=== PATIENT | female | born 1975 | race Caucasian/White ===

== ENCOUNTER 2021-10-19 09:30 | Outpatient (CLI) | payer OTHER, SELFPAY ==
[2021-10-19 10:06] LABS: Anion Gap 9 mmol/L (8-16); Blood Urea Nitrogen 10 mg/dL (7-17); Calcium 9.2 mg/dL (8.4-10.2); Carbon Dioxide 28 mmol/L (22-30); Chloride 100 mmol/L (98-107); Estimated Glomerular Filt Rate > 60; Glucose 139 mg/dL (65-110); Potassium 4.3 mmol/L (3.4-5.0); Sodium 137 mmol/L (137-145)
== END 2021-10-19 09:31 | disposition home or self-care (01) ==
LOC: ANHSURGERY 09:42
PROVIDERS: Anesthesiology; PCP Family Medicine; Visit Provider Obstetrics & Gynecology Gynecology
DX: Z01.812 Encounter for preprocedural laboratory examination (principal); Z51.81 Encounter for therapeutic drug level monitoring; Z79.899 Other long term (current) drug therapy
CPT/HCPCS: 36415; 80048

== ENCOUNTER 2021-10-23 00:02 | Day surgery (SDC) | payer OTHER, SELFPAY ==
[2021-10-18 15:07] VITALS: BMI 31.1
--- NOTE | 2021-10-18 15:08 | PC.NURSE ---
Addendum entered by Sujata Phan RN 10/19/21 07:47: MAY TAKE PRISTIQ MORNING OF SURGERY WITH SMALL SIP OF WATER Original Note: Report to the Outpatient Waiting Room, entrance under the green pavilion located off [facility], at time ____629___ on date __10/23/21 . OR Time: . - You and your visitor will be asked a series of questions to screen for COVID 19 for your protection. - A mask is required within the hospital. Preoperative COVID Testing Requirements: No COVID Test needed if: (proof is required; if not received patient will have Rapid Test prior to entry) - Patient has received COVID Vaccine at least 14 days prior to procedure date or - Patient has positive COVID test result within last 90 days of surgery date. COVID Test needed if above criteria is not met If not COVID vaccinated a COVID test must be conducted within 72 hours of surgery and patient is asked to isolate self from time of testing until procedure. You will go to the [facility] for your COVID testing. The [facility] site is located at the corner of [address] [facility]. You will only be called if COVID results are positive and your surgeon may reschedule your elective surgery date. Patients may have clear liquids (water, carbonated beverages, clear teas, apple juice) until 3 hours prior to surgery with a maximum of 20 ounces. - No food from midnight until time of surgery - Infants may have breast milk until 4 hours before surgery, infant formula 6 hours prior to surgery. - Children will be allowed to drink immediately following surgery. If applicable, please bring a bottle or sippy cup to assist with drinking. Juice, water, soda, and popsicles are readily available. For infants on formula, please bring formula the day of surgery. Pacifiers are allowed. Take the following medications with a SIP of water the morning of surgery: METOPROLOL, PANTOPRAZOLE Medications to discontinue per physician NONE Date to take last dose Please no make-up, nail argentine, hairspray, perfume, deodorant, or body powder the day of surgery. No jewelry (including any body piercings) or valuables the day of surgery, leave them at home. Please take a shower or bath the night before, or the morning of, surgery with an antibacterial soap. Wear comfortable, loose fitting clothing. Children are encouraged to wear pajamas. - Jewelry must be removed prior to entering the operating room. Rings and piercings that are not removed may be cut off. - The hospital will not accept responsibility for valuables. - Please leave all valuables, including medications, at home the day of surgery. If you are going home after surgery, a licensed cement mixer driver must drive you home. - NO public transportation without another adult. - We recommend that an adult stay with you for 24 hours following discharge. - We also recommend that you do not drive, make important decision, drink alcoholic beverages, or take any drugs that were not prescribed by your health care provider for at least 24 hours after your discharge time. For Pediatric surgeries, we recommend two adults accompany the child home (only one inside the building at this time). One visitor will be allowed to accompany the patient into the hospital. Patients visitor will be instructed to remain with patient at all times or leave the building. We will allow the visitor to come back to the postoperative area when patient is ready. Follow any additional instructions given to you from your surgeon. Telephone instructions given to PATIENT____and asked if any additional questions and then verbalized understanding. Patient advised to call surgeon office or pre surgery nurse liaison [phone] if any additional questions.
--- NOTE | 2021-10-22 16:41 | WPDANESEPP ---
Anes - Eval Pre Procedure Procedure: Operation Date: 10/23/21 08:30 Proposed Procedures p Hysteroscopy Dilation and Curettage - Mary Banks MD Date/Time: 10/22/21 16:41 Pre Op Diagnosis: pelvic pain, left ovarian mass Patient Data Age: 46 Gender: F Height: 1.65 m Weight: 85 kg Allergies Allergy/AdvReac Type Severity Reaction Status Date / Time No Known Allergies Allergy Verified 10/18/21 14:54 Home Medications Medication Instructions Recorded Confirmed Type desvenlafaxine succinate [Pristiq] 100 mg PO DAILY 10/18/21 10/18/21 History hydrochlorothiazide 12.5 mg PO DAILY 10/18/21 10/18/21 History levocetirizine [Xyzal] 5 mg PO DAILY 10/18/21 10/18/21 History metformin 1,000 mg PO DAILY 10/18/21 10/18/21 History metoprolol succinate 50 mg PO DAILY 10/18/21 10/18/21 History pantoprazole 40 mg PO QAM 10/18/21 10/18/21 History spironolactone 100 mg PO DAILY 10/18/21 10/18/21 History Patient hx anesthesia problems: post op nausea/vomiting Family hx anesthesia problems: none Results Review: All pre-operative results and documents have been reviewed as part of the pre-operative evaluation. [facility] Past Medical History Medical History (Updated 10/22/21 @ 16:41 by Calli Raymond CRNA) Anxiety GERD (gastroesophageal reflux disease) Hypertension PONV (postoperative nausea and vomiting) Surgical History Surgical History (Updated 10/20/21 @ 13:51 by Tim Sanchez DO) History of History of spinal fusion Social History Social History Smoking status: Never smoker Alcohol use details: VERY RARELY Exam Day of Procedure 10/22/21 16:41
--- NOTE | 2021-10-23 07:15 | WPDHPUPDATE1 ---
History and Physical Update Update Date/Time: 10/23/21 07:15 History and Physical has been reviewed, including an updated exam of the patient. There are NO changes in the patient's condition. Risks, benefits, and alternatives have been discussed and questions answered. Patient agrees to proceed with procedure.
--- NOTE | 2021-10-23 07:15 | PM.HPGS ---
History of Present Illness History of Present Illness Consent: Risks, benefits, and alternatives have been discussed and questions answered. Patient agrees to proceed with procedure. Chief complaint: pelvic pain, left ovarian mass Narrative: Hafsa Gu is a 46 year old female with onset of heavy and irregular cycles in June of 2022. Patient reports prior to that point cycles have been every month. Currently she is having cycles approximately every 2 weeks each lasting for 7 days. It was recommended to proceed with workup for abnormal bleeding with hysteroscopy D& C. Risks of infection, bleeding, perforation, and possible pathology were reviewed. Patient voices understanding and agrees to proceed. Review of Systems Review of Systems: not repeated day of surgery; patient states no changes in status Genitourinary: Genitourinary: Reports dysmenorrhea PMFSH Past Medical History Medical History (Updated 10/23/21 @ 07:19 by Mary Banks MD) Anxiety Asthma GERD (gastroesophageal reflux disease) Hypertension PCOS (polycystic ovarian syndrome) PONV (postoperative nausea and vomiting) Surgical History Surgical History (Updated 10/23/21 @ 07:18 by Mary Banks MD) H/O sinus surgery History of bilateral tubal ligation History of X2 History of spinal fusion Status post right breast lumpectomy 2018 Social History Social History Smoking status: Never smoker Alcohol use details: VERY RARELY Living arrangements: with family Meds Home Medications and Allergies Home Medications Medication Instructions Recorded Confirmed Type desvenlafaxine succinate [Pristiq] 100 mg PO DAILY 10/18/21 10/23/21 History hydrochlorothiazide 12.5 mg PO DAILY 10/18/21 10/23/21 History levocetirizine [Xyzal] 5 mg PO DAILY 10/18/21 10/23/21 History metformin 1,000 mg PO DAILY 10/18/21 10/23/21 History metoprolol succinate 50 mg PO DAILY 10/18/21 10/23/21 History pantoprazole 40 mg PO QAM 10/18/21 10/23/21 History spironolactone 100 mg PO DAILY 10/18/21 10/23/21 History meloxicam [Mobic] 7.5 mg PO DAILY 10/23/21 10/23/21 History Allergies Allergy/AdvReac Type Severity Reaction Status Date / Time No Known Allergies Allergy Verified 03/07/22 07:09 Exam Const: General: healthy appearing and alert Orientation/consciousness: patient oriented x3 GI: GI Palp: Yes Soft to palpation, No Tenderness to palpation present (GI) and No Palpable mass present : External Female Exam: normal external appearance Speculum Exam - Vagina: normal appearance of the vagina and normal vaginal discharge Speculum Exam - Cervix: normal appearance of the cervix Bimanual exam- vagina & uterus: uterine size normal and consistency normal Bimanual Exam- Adnexa, other: normal adnexae and No adnexal tenderness Neuro: General: patient oriented x3 Assessment and Plan Assessment and plan (1) Menorrhagia: Code(s): N92.0 - Excessive and frequent menstruation with regular cycle Status: Acute Assessment and Plan: Plan is to proceed with D&C hysteroscopy
[2021-10-23] MEDS: LACTATED RINGERS 1,000 ML 30 ML IV CONT (07:39)
--- NOTE | 2021-10-23 07:39 | WPDANESEFPP ---
Anes - Eval Final PreProcedure Day of Procedure 10/23/21 07:39 Patient weight: obese Heart: regular rate and rhythm Lungs: clear to auscultation and normal air movement Airway: Mallampati scale class II Neurological: alert and oriented Last oral intake: >/= 8 hours ASA classification: III Emergent: no Anesthetic plan: proceed Anesthesia type and monitoring: general GIVS and standard monitoring Results Review: All pre-operative results and documents have been reviewed as part of the pre-operative evaluation. Informed Consent: The patient's anesthetic plan and its attendant risks and benefits were discussed with the patient/family/POA. Questions were solicited and answers provided to the satisfaction of the patient/family/POA.
[2021-10-23 07:48] VITALS: BP 135/71; PULSE 75; RESP 20; TEMP 36.2; O2SAT 98
[2021-10-23] MEDS: ACETAMINOPHEN 500 MG TABLET 1000 MG PO (07:50)
--- NOTE | 2021-10-23 08:22 | P.OP_ITS ---
Procedure Note - Detailed Date of Procedure 10/23/21 Pre-op Diagnosis Menorrhagia Post-op Diagnosis Same Procedure Performed D&C hysteroscopy Surgeon Mary Banks MD Anesthesia MAC and Local Findings Cervix is stenotic. Uterus sounds to 7cm and appears grossly normal. Description of Procedure The patient was taken to the operating room and placed under anesthesia in the dorsal lithotomy position. She was prepped and draped in the usual sterile fashion. [place] speculum was placed in the vagina and has difficulty opening due to a tight upper vaginal canal. The cervix was grasped on the anterior lip with a tenaculum and does not descend with traction. The cervix is injected in each quadrant with 1% lidocaine. The uterus is attempted to be sounded and internal stenosis is noted. The os Finders are used and the cervix was able to be opened. The uterus is sounded to 7cm. The cervix is serially dilated with Hegar. The uterus is then inspected with the hysteroscope. No abnormalities are noted and the hysteroscope was removed. The medium sharp curette is used to sharply curette the endometrium until a good uterine cry was noted in all areas. Minimal material was obtained. All instruments are removed. Sponge, needle, and instrument counts are correct per the OR staff. Patient is awakened from anesthesia and taken to recovery in stable condition. Estimated Blood Loss 5 Drains No Packing No Pathology Yes (Endometrial curettings) Complications No immediate complications Condition Stable Disposition PACU
[2021-10-23 08:25] VITALS: BP 115/69; PULSE 88; RESP 12; O2SAT 94
[2021-10-23] MEDS: LIDOCAINE HCL 1% LOCAL INJ 20 ML VIAL 10 ML INFILTRATE (08:26)
[2021-10-23 08:55] VITALS: BP 115/72; PULSE 84; RESP 12; O2SAT 98
[2021-10-23 09:10] VITALS: BP 112/69; PULSE 62; RESP 12
== END 2021-10-23 09:20 | disposition home or self-care (01) ==
PROVIDERS: PCP Family Medicine; Visit Provider Obstetrics & Gynecology Gynecology
PROC: 0U5B8ZZ Destruction of Endometrium, Via Natural or Artificial Opening Endoscopic (ICD-10-PCS; CPT 58563; principal; 2021-10-23 08:30)
DX: N92.0 Excessive and frequent menstruation with regular cycle (principal); E28.2 Polycystic ovarian syndrome; N88.2 Stricture and stenosis of cervix uteri; E66.9 Obesity, unspecified; Z68.32 Body mass index [BMI] 32.0-32.9, adult; F41.9 Anxiety disorder, unspecified; I10 Essential (primary) hypertension; K21.9 Gastro-esophageal reflux disease without esophagitis; J45.909 Unspecified asthma, uncomplicated; Z98.1 Arthrodesis status; Z79.84 Long term (current) use of oral hypoglycemic drugs
CPT/HCPCS: 58558; 36415; 80048; 88305; A9270; J2250; J2704; J3010; J7030; J7120

== ENCOUNTER 2021-11-24 08:05 | Outpatient (CLI) | payer OTHER, SELFPAY ==
--- NOTE | 2021-11-24 08:00 | ECG_ITS ---
Measurements Intervals [place] Rate: 67 P: 138 TN: 176 QRS: 47 QRSD: 98 T: 132 QT: 400 QTc: 423 Interpretive Statements SINUS RHYTHM CANNOT RULE OUT PREVIOUS ANTEROSEPTAL MT ABNORMAL ECG NO PREVIOUS ECG AVAILABLE FOR COMPARISON Electronically Signed On 11-24-2021 11:15:31 CDT by Griffin Donohue M.D.
[2021-11-24 08:52] LABS: Anion Gap 6 mmol/L (8-16); Blood Urea Nitrogen 14 mg/dL (7-17); Calcium 9.6 mg/dL (8.4-10.2); Carbon Dioxide 32 mmol/L (22-30); Chloride 100 mmol/L (98-107); Estimated Glomerular Filt Rate > 60; Glucose 100 mg/dL (65-110); Potassium 4.4 mmol/L (3.4-5.0); Sodium 138 mmol/L (137-145)
== END 2021-11-24 08:06 | disposition home or self-care (01) ==
LOC: ANHSURGERY 08:08
PROVIDERS: Anesthesiology; PCP Family Medicine; Visit Provider Obstetrics & Gynecology Gynecology
DX: Z01.818 Encounter for other preprocedural examination (principal); N92.0 Excessive and frequent menstruation with regular cycle; I10 Essential (primary) hypertension; Z79.899 Other long term (current) drug therapy; R94.31 Abnormal electrocardiogram [ECG] [EKG]
CPT/HCPCS: 36415; 80048; 85014; 85018; 86850; 86900; 86901; 86920; 93005

== ENCOUNTER 2021-11-27 10:42 | Inpatient (IN) | payer OTHER, SELFPAY ==
[2021-11-20 12:32] VITALS: BMI 32.5
--- NOTE | 2021-11-20 12:42 | PC.NURSE ---
Report to the Outpatient Waiting Room, entrance under the green pavilion located off [facility], at time 6:00 on date 11/27/21. OR Time: 7:30. - You and your visitor will be asked a series of questions to screen for COVID 19 for your protection. - A mask is required within the hospital. One visitor will be allowed to accompany the patient into the hospital. Patients visitor will be instructed to remain with patient at all times or leave the building. We will allow the visitor to come back to the postoperative area when patient is ready. Preoperative COVID Testing Requirements: No COVID Test needed if: (proof is required; if not received patient will have Rapid Test prior to entry) - Patient has received COVID Vaccine at least 14 days prior to procedure date or - Patient has positive COVID test result within last 90 days of surgery date. COVID Test needed if above criteria is not met Patients may have clear liquids (water, carbonated beverages, clear teas, apple juice) until 3 hours prior to surgery (4:30) with a maximum of 20 ounces. - No food from midnight until time of surgery Take the following medications with a SIP of water the morning of surgery: METOPROLOL Medications to discontinue per physician: MOBIC Date to take last dose: PER DR. DIAZ Please no make-up, nail bahamian, hairspray, perfume, deodorant, or body powder the day of surgery. No jewelry (including any body piercings) or valuables the day of surgery, leave them at home. Please take a shower or bath the night before, or the morning of, surgery with an antibacterial soap. Wear comfortable, loose fitting clothing. - Jewelry must be removed prior to entering the operating room. Rings and piercings that are not removed may be cut off. - The hospital will not accept responsibility for valuables. - Please leave all valuables, including medications, at home the day of surgery. If you are going home after surgery, a licensed tram driver must drive you home. - NO public transportation without another adult. - We recommend that an adult stay with you for 24 hours following discharge. - We also recommend that you do not drive, make important decision, drink alcoholic beverages, or take any drugs that were not prescribed by your health care provider for at least 24 hours after your discharge time. Follow any additional instructions given to you from your surgeon. Telephone instructions given to ARSALAN CHOI and asked if any additional questions and then verbalized understanding. Patient advised to call surgeon office or pre surgery nurse liaison [phone] if any additional questions.
[2021-11-24 08:41] LABS: Hematocrit 42.9 % (37.0-47.0); Hemoglobin 14.2 g/dL (12.0-15.0)
[2021-11-27] VITALS (13 sets, daily range): BP systolic 71–147; BP diastolic 46–76; PULSE 67–106; RESP 12–22; TEMP 36–37.1; O2SAT 92–100
[2021-11-27] MEDS: LACTATED RINGERS 1,000 ML 30 ML IV CONT ×3 (07:00→10:21)
[2021-11-27] MEDS: ACETAMINOPHEN 500 MG TABLET 1000 MG PO (07:02)
--- NOTE | 2021-11-27 07:05 | WPDHPUPDATE1 ---
History and Physical Update Update Date/Time: 11/27/21 07:05 History and Physical has been reviewed, including an updated exam of the patient. There are NO changes in the patient's condition. Risks, benefits, and alternatives have been discussed and questions answered. Patient agrees to proceed with procedure.
--- NOTE | 2021-11-27 07:06 | PM.IMHP ---
H&P: HPI History of Present Illness Date/Time: 11/27/21 07:06 Chief Complaint: Chronic pelvic pain and menorrhagia Narrative: The patient is a 46-year-old 3 para 2 aborta 1 admitted for total abdominal hysterectomy bilateral salpingectomy and left oophorectomy. The patient has had chronic pelvic pain and had been previously treated by Dr. Marques. Patient has been followed for a chronic left ovarian cyst that is approximately 4.5cm. The the patient states she has severe pain with cycles. Recently the patient has had a change in her cycles with bleeding every 2 weeks lasting for 7 days starting in June of 2021. Patient underwent hysteroscopy which revealed benign findings. Patient has elected to proceed with definitive therapy with hysterectomy. Due to previous x2 the plan is to proceed with abdominal hysterectomy. In addition both tubes will be removed and the left ovary due to pain on the left side and chronic cyst. Patient states if the right ovary has cyst and needs to be removed she is also okay with it being removed. Risks of infection, bleeding, injury to internal organs (bowel, bladder, ureters), DVT, and general anesthesia were reviewed. Possible pathology was discussed. In addition the patient was informed that pain in the pelvis may continue. Patient voiced understanding and agreed to proceed. Review of Systems Review of Systems: Negative except for history of present illness Constitutional: Constitutional: Reports night sweats PMFSH Past Medical History Medical History (Updated 11/27/21 @ 07:12 by Mary Banks MD) Anxiety Asthma GERD (gastroesophageal reflux disease) Hypertension PCOS (polycystic ovarian syndrome) PONV (postoperative nausea and vomiting) Surgical History Surgical History (Updated 11/27/21 @ 07:11 by Mary Banks MD) H/O sinus surgery History of bilateral tubal ligation History of X2 History of hysteroscopy History of spinal fusion Status post right breast lumpectomy 2018 Social History Social History Smoking status: Never smoker Alcohol intake: current Alcohol use details: VERY RARE Substance use: never Substance use type: does not use Living arrangements: with family Spiritual care concerns: No Meds Home Medications and Allergies Home Medications Medication Instructions Recorded Confirmed Type desvenlafaxine succinate [Pristiq] 100 mg PO HS 10/18/21 11/20/21 History hydrochlorothiazide 12.5 mg PO DAILY 10/18/21 11/20/21 History levocetirizine [Xyzal] 5 mg PO HS 10/18/21 11/20/21 History metformin 1,000 mg PO DAILY 10/18/21 11/20/21 History metoprolol succinate 50 mg PO DAILY 10/18/21 11/20/21 History pantoprazole 40 mg PO QAM 10/18/21 11/20/21 History spironolactone 100 mg PO DAILY 10/18/21 11/20/21 History meloxicam [Mobic] 7.5 mg PO DAILY 10/23/21 11/20/21 History Allergies Allergy/AdvReac Type Severity Reaction Status Date / Time No Known Allergies Allergy Verified 11/27/21 07:11 Exam Const: General: healthy appearing and alert Orientation/consciousness: patient oriented x3 GI: GI Palp: Yes Soft to palpation, No Tenderness to palpation present (GI) and No Palpable mass present : External Female Exam: normal external appearance Speculum Exam - Vagina: normal appearance of the vagina and normal vaginal discharge Speculum Exam - Cervix: normal appearance of the cervix Bimanual exam- vagina & uterus: uterine size normal and consistency normal Bimanual Exam- Adnexa, other: normal adnexae and No adnexal tenderness Neuro: General: patient oriented x3 Assessment and Plan Assessment and plan (1) Menorrhagia: Code(s): N92.0 - Excessive and frequent menstruation with regular cycle Status: Acute Assessment and Plan: Plan is to proceed with total abdominal hysterectomy bilateral salpingectomy and left oophorectomy (2) Chronic pelvic pain in female: Code(s): R1
--- NOTE | 2021-11-27 07:14 | P.PNAN_ITS ---
Anes - Initial Pre Proc Eval Procedure: Operation Date: 11/27/21 07:30 Proposed Procedures p Total Abdominal Hysterectomy with Bilateral Salpingectomy, Left Oophorectomy - Mary Banks MD Date/Time: 11/27/21 07:14 Surgeon: Mary Banks MD Pre Op Diagnosis: Pelvic Pain, Lt Ovarian Mass Patient Data Age: 46 Gender: F Height: 1.65 m Weight: 86.5 kg Allergies Allergy/AdvReac Type Severity Reaction Status Date / Time No Known Allergies Allergy Verified 11/27/21 07:11 Home Medications Medication Instructions Recorded Confirmed Type desvenlafaxine succinate [Pristiq] 100 mg PO HS 10/18/21 11/27/21 History hydrochlorothiazide 12.5 mg PO DAILY 10/18/21 11/27/21 History levocetirizine [Xyzal] 5 mg PO HS 10/18/21 11/27/21 History metformin 1,000 mg PO DAILY 10/18/21 11/27/21 History metoprolol succinate 50 mg PO DAILY 10/18/21 11/27/21 History pantoprazole 40 mg PO QAM 10/18/21 11/27/21 History spironolactone 100 mg PO DAILY 10/18/21 11/27/21 History meloxicam [Mobic] 7.5 mg PO DAILY 10/23/21 11/27/21 History Patient hx anesthesia problems: post op nausea/vomiting and other (hx of painful throat post-op at [facility]) Family hx anesthesia problems: none Results Review: All pre-operative results and documents have been reviewed as part of the pre-operative evaluation. [facility] Past Medical History Medical History Anxiety Asthma GERD (gastroesophageal reflux disease) Hypertension PCOS (polycystic ovarian syndrome) PONV (postoperative nausea and vomiting) Surgical History Surgical History (Updated 11/27/21 @ 07:11 by Mary Banks MD) H/O sinus surgery History of bilateral tubal ligation History of X2 History of hysteroscopy History of spinal fusion Status post right breast lumpectomy 2018 Social History Social History Smoking status: Never smoker Alcohol intake: current Alcohol use details: VERY RARE Substance use: never Substance use type: does not use Living arrangements: with family Spiritual care concerns: No Anes - Eval Final PreProcedure Day of Procedure 11/27/21 07:14 Patient weight: obese Heart: regular rate and rhythm Lungs: clear to auscultation Airway: Mallampati scale class II and special considerations (hx of difficult intubation) Neurological: alert and oriented Last oral intake: >/= 8 hours ASA classification: III Emergent: no Anesthetic plan: proceed Anesthesia type and monitoring: general and standard monitoring Results Review: All pre-operative results and documents have been reviewed as part of the pre-operative evaluation. Informed Consent: The patient's anesthetic plan and its attendant risks and benefits were discussed with the patient/family/POA. Questions were solicited and answers provided to the satisfaction of the patient/family/POA.
[2021-11-27] MEDS: SCOPOLAMINE 1.5 MG PATCH TRANSDERM (07:21)
[2021-11-27] MEDS: ceFAZolin 2 GM/D5W 50 ML 2 GM/50 ML BAG IVPB (07:24)
--- NOTE | 2021-11-27 08:50 | W.PM.PROC2 ---
Procedure Note - Detailed Date of Procedure 11/27/21 Pre-op Diagnosis Pelvic Pain, Lt Ovarian Mass, menorrhagia Post-op Diagnosis Same Procedure Performed Total abdominal hysterectomy, bilateral salpingectomy, left oophorectomy Surgeon Mary Banks MD Anesthesia General Findings Enlarged left ovary with multiple cysts and 1 dominant cyst; evidence of prior tubal ligation; right ovary with several less than 1cm cyst; densely adherent bladder flap to lower uterine segment; midportion of the right fallopian tube densely adherent to the ovary Description of Procedure The patient was taken to the operating room placed under anesthesia in the dorsal supine position. She was prepped and draped in the usual sterile fashion. A Pfannenstiel skin incision was made through her prior incision and carried down to fascia which was nicked in the midline. The fascial incision was extended laterally using Ocampo scissors. Ochsner was used to tent the fascia which was then dissected off using sharp dissection due to adhesions. The rectus muscles are densely adherent in the midline. A Peon is used to enter the peritoneum high in the incision and the incision is extended with sharp and blunt dissection. The bowels packed away using moist laparotomy sponges. The Sachi was placed. The uterus is grasped on the cornu with large peans. The round ligaments were doubly ligated with 0 Vicryl, transected, and the anterior leaf of the broad ligament incised meeting in the midline. The bladder was densely adherent and required significant sharp dissection. The utero-ovarian ligament on the left is identified, a window was created in the posterior leaf of the broad ligament, and the pedicle clamped, transected, and suture ligated with 0 Vicryl. The right utero-ovarian ligament is isolated and a window created in the posterior leaf the broad ligament. The pedicle is clamped, transected, and suture ligated with 0 Vicryl. The distal portion the right tube is grasped with a Evelyn, crossclamped, and excised. This left a small portion of the mid tube on the right ovary. The uterine vessels are skeletonized, clamped, transected, and suture ligated with 0 Vicryl. The cardinal and uterosacral ligaments are serially clamped, transected, and suture ligated with 0 Vicryl. The uterosacral ligaments were tagged for future use. The vaginal cuff was entered on the left side. Vaginal cuff was grasped with Allis clamps and the specimen amputated using Leslie scissors. The vaginal cuff is closed using 0 Vicryl in a running locked fashion tying each angle to the ipsilateral uterosacral ligaments. Good hemostasis is noted. The pelvis is irrigated and all pedicles were noted to be hemostatic. The sponges and retractors are removed. The fascia was closed using 0 Vicryl in a running fashion. Subcutaneous tissues are irrigated and made hemostatic using Bovie cautery. Skin is closed using 4-0 Vicryl in a subcuticular fashion. Dermaflex was placed over the incision. Patient is awakened from anesthesia and taken to recovery in stable condition. Sponge, needle, and instrument counts are correct per the OR staff. Estimated Blood Loss 150 Drains Yes (Forde catheter) Packing No Pathology Yes (Uterus, tube,s and left ovary) Complications No immediate complications Condition Stable Disposition PACU
--- NOTE | 2021-11-27 08:54 | SUR.OPER ---
EBL:150cc, Urine:50cc
--- NOTE | 2021-11-27 08:58 | PM.DS ---
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 However, the next am significant drop in H/H. Patient felt well and vs remained stable. Repeat H/H slowly trended down over next 24 hours. Started TXA and gave transfusion of 2 units PRBC. The morning of DC there is an appropriate rise in the H/H for 2 units and patient continues to feel well. Will DC patient home on Lysteda 1300 mg po TIDx 5 days. She will limit her activity for the next 5 days as well. She will call with any questions or change in status. The patient is voiding, ambulating, and tolerating a regular diet upon discharge. Status at Discharge Functional status at discharge: independent ambulation Overall status at discharge: patient is progressing back to baseline Time Spent with Patient Time attestation: Total time spent providing and/or coordinating discharge services: Exam GI: Inspection: normal to inspection GI Palp: Yes abdominal tenderness (appropriate) Percussion: Yes normal to percussion Auscultation: normal bowel sounds DS: Data Data Completed and Pending Pending studies at discharge: Pending at discharge 11/27/21 08:26 Surgical [PTH] Routine Discharge Plan Discharge Attending physician on discharge: Mary Banks Consulting providers: Gilberto Kennedy Discharging Clinician: Mary Banks Anticipated Discharge Date/Time: 11/30/21 07:38 Patient Disposition: Home, Self-Care Activity: may shower, may drive after 2 weeks and pelvic rest Diet: regular Wound Care Instructions: incision open to air Stand Alone Forms: General Discharge Instructions Follow-up/Referrals: Mary Banks MD [Physician] - 1 Week Discharge Medications: New hydrocodone-acetaminophen 5-325 mg Tablet 1 tablet PO Q4H PRN (Reason: Pain Rated 5 Or Less) Qty: 20 RF: 0 polysaccharide iron complex 150 mg iron Capsule 150 mg PO BIDWM Qty: 60 RF: 0 tranexamic acid [Lysteda] 650 mg tablet 1,300 mg PO TID Qty: 30 RF: 0 Continued hydrochlorothiazide 12.5 mg Tablet 12.5 mg PO DAILY RF: 0 metoprolol succinate 50 mg Tablet Extended Release 24 Hr 50 mg PO DAILY RF: 0 spironolactone 100 mg Tablet 100 mg PO DAILY RF: 0 pantoprazole 40 mg Tablet,Delayed Release (Dr/Ec) 40 mg PO QAM RF: 0 metformin 1,000 mg Tablet Extended Release 24hr 1,000 mg PO DAILY RF: 0 desvenlafaxine succinate [Pristiq] 100 mg Tablet Extended Release 24 Hr 100 mg PO HS RF: 0 levocetirizine [Xyzal] 5 mg Tablet 5 mg PO HS RF: 0 Held meloxicam [Mobic] 7.5 mg Tablet 7.5 mg PO DAILY RF: 0 Hold Instructions: Resume on 12/05/21. Date of admission: 11/28/21 13:06 Primary Care Provider: FrancoHafsa Admitting Provider: Mary Banks Attending physician on admission: Mary Banks Condition: Stable
--- NOTE | 2021-11-27 10:47 | W.PM.PROC2 ---
Procedure Note - Detailed Date of Procedure 11/27/21 Pre-op Diagnosis hematuria Post-op Diagnosis Same Procedure Performed cystoscopy Surgeon Gilberto Kennedy MD Anesthesia MAC Indications this is a woman who has undergone hysterectomy. Blood was noted in the Forde at the end of the surgery. I was asked performed cystoscopy Findings no bladder or ureteral injury Description of Procedure she was already under anesthesia. I entered the field. She was prepped and draped in a sterile fashion. I performed cystoscopy. There is some bruising to the posterior wall of her bladder. There was no other bladder abnormalities. There is no bladder injury. Urethra was normal. She had no tumors, stones, trabeculations. Both ureters were seen to excrete clear yellow urine. I replaced the Forde. She was taken to the PACU in stable condition once awakened Implants none Estimated Blood Loss 1 Urine Output -50.0 Drains Yes ( Forde) Packing No Pathology None sent Complications No immediate complications Condition Stable Disposition PACU
--- NOTE | 2021-11-27 10:50 | PC.NURSE ---
This patient, Hafsa Gu, was received from PACU per bed to room 288. Patient/family oriented to unit policies and routines
[2021-11-27] MEDS: DEXTROSE 5%/LACTATED RINGERS 1,000 ML 125 ML IV CONT ×2 (11:28→19:44)
[2021-11-27] MEDS: FENTANYL 600MCG/NS30MLPCA(*CRX 600 MCG/30 ML PCA.VIAL IV CONT (12:05)
[2021-11-27] MEDS: SODIUM CHLORIDE 0.9% IV 1,000 ML 999 ML (16:55)
[2021-11-27] MEDS: HYDROcodone/acetaminophen (*CRX) 10-325 MG TABLET 1 TAB PO ×3 (16:58→23:40)
[2021-11-27] MEDS: IBUPROFEN 600 MG TABLET PO (19:35)
[2021-11-27] MEDS: SIMETHICONE 80 MG TAB.CHEW (19:43)
[2021-11-27] MEDS: LORATADINE 10 MG TABLET PO (21:12)
[2021-11-27] MEDS: SIMETHICONE 80 MG TAB.CHEW PO (23:39)
[2021-11-28] MEDS: SIMETHICONE 80 MG TAB.CHEW PO ×5 (01:55→19:12)
[2021-11-28] MEDS: DEXTROSE 5%/LACTATED RINGERS 1,000 ML 125 ML IV CONT (03:37)
[2021-11-28] MEDS: HYDROcodone/acetaminophen (*CRX) 10-325 MG TABLET 1 TAB PO ×4 (03:38→16:28)
[2021-11-28 03:55] VITALS: BP 119/51; PULSE 102; RESP 20; TEMP 36.8; O2SAT 97
[2021-11-28 06:01] LABS: Basophils Percent Auto 0.1 % (0.2-1.2); Hemoglobin 8.5 g/dL (12.0-15.0); Immature Granulocyte Absolute 0.06 K/mm3 (0.00-0.031); Immature Granulocyte Percent A 0.4 % (0-0.5); Lymphocytes Absolute Auto 2.61 K/mm3 (0.9-3.2); Lymphocytes Percent Auto 16.8 % (18.3-44.2); Mean Corpuscular HGB Conc 32.7 g/dl (32-36); Mean Corpuscular Hemoglobin 29.8 pg (26-34); Mean Corpuscular Volume 91.2 fl (80-100); Mean Platelet Volume 11.6 fl (7.4-10.4); Monocytes Absolute Auto 1.4 K/mm3 (0.1-0.6); Monocytes Percent Auto 8.9 % (2.6-8.5); Neutrophils Absolute Auto 11.5 K/mm3 (1.3-6.7); Neutrophils Percent Auto 73.8 % (45.5-73.1); Platelet Count Result 333 k/mm3 (150-375); Red Blood Count 2.85 M/mm3 (4.2-5.4); Red Cell Distribution Width 13.3 % (11.5-14.5); White Blood Count 15.6 K/mm3 (4.5-10.0)
--- NOTE | 2021-11-28 07:54 | PM.GYNPNOP ---
SOFTWARE DESIGNER - A/P Postoperative Procedures: Procedures Operation Date: 11/27/21 07:30 Actual Procedure Side Surgeon p Total Abdominal Hysterectomy with Bilateral Salpingectomy, Left Oophorectomy, cystoscopy Bilateral Mary Banks MD Postoperative day: 1 Postoperative status: doing well and anemia (suspect brief post op bleedingyesterday that has resolved as vitals stablized with 500 cc bolus of fluids) Postoperative plan: see orders (recheck H/H at 1400) Time Spent With Patient Time: Total time spent is greater than 50% in coordination of care (as documented) at patient's floor/unit and/or counseling patient: Time with patient: less than 15 minutes SOFTWARE DESIGNER- PN:Subj Post-Op Subjective Date/time seen: 11/28/21 07:54 Interval history: No nausea. Pain much improved. Mainly RUQ still Subjective: patient reports feeling better and pain is well controlled Exam Narrative: abdomen soft, nt, slight tympanic to percussion inc c/d/i SOFTWARE DESIGNER - PN: Obj Data Vital Signs Vital Signs: Vital Signs - 24 hr 11/27/21 09:30 11/27/21 09:45 11/27/21 10:00 Temperature 96.8 F L Pulse Rate 85 67 84 Respiratory Rate 12 13 15 Blood Pressure 147/76 H 96/61 L 94/57 L Pulse Oximetry 99 99 99 11/27/21 10:15 11/27/21 11:00 11/27/21 16:45 Temperature 97.6 F Pulse Rate 76 77 87 Respiratory Rate 15 18 20 Blood Pressure 102/56 L 94/54 L 87/53 L Pulse Oximetry 95 96 96 11/27/21 16:50 11/27/21 16:55 11/27/21 17:15 Temperature Pulse Rate 72 82 Respiratory Rate 20 Blood Pressure 71/46 L 88/49 L 118/66 Pulse Oximetry 92 100 100 11/27/21 19:15 11/27/21 20:00 11/27/21 23:45 Temperature 98.2 F 98.8 F Pulse Rate 82 106 H 102 H Respiratory Rate 18 22 H 20 Blood Pressure 118/68 127/69 Pulse Oximetry 99 98 99 11/28/21 03:55 Temperature 98.2 F Pulse Rate 102 H Respiratory Rate 20 Blood Pressure 119/51 L Pulse Oximetry 97 Intake/Output Intake/Output: Intake & Output 11/25/21 11/26/21 11/27/21 11/28/21 23:59 23:59 23:59 23:59 Intake Total 9034 1240 Output Total 151 555 Balance 2870 815 Meds/Results Medications: Active Medications Generic Name Dose Route Start Last Admin Trade Name Freq PRN Reason Stop Dose Admin Hydrocodone Bitart/Acetaminophen 1 tab 11/27/21 10:42 11/28/21 03:38 Hydrocodone/Acetaminophen (*Crx) 10-325 Mg Tablet PO 1 tab Q3H PRN Administration Pain Rated 6 or Greater Hydrocodone Bitart/Acetaminophen 1 tab 11/27/21 10:42 Hydrocodone/Acetaminophen (*Crx) 5-325 Mg Tablet PO Q3H PRN Pain Rated 5 or Less Hydrochlorothiazide 12.5 mg 11/27/21 10:42 11/27/21 16:13 Hydrochlorothiazide 12.5 Mg Capsule PO Not Given DAILY IKE Dextrose/Lactated Ringer's 1,000 mls @ 125 mls/hr 11/27/21 10:42 11/28/21 03:37 Dextrose 5%/Lactated Ringers IV CONT 125 mls/hr .Q8H IKE Administration Fentanyl Citrate 600 mcg in 30 mls @ 0.5 mls/hr 11/27/21 10:42 11/27/21 16:55 Fentanyl 600 Mcg/Ns 30 Ml Umbrella Cutter IV CONT Infused PRN PRN Titration INTERACTIVE WEB DEVELOPER Management Protocol 10 MCG/HR Ibuprofen 600 mg 11/27/21 10:42 11/27/21 19:35 Ibuprofen 600 Mg Tablet PO 600 mg Q6H PRN Administration Cramping Loratadine 10 mg 11/27/21 21:00 11/27/21 21:12 Loratadine 10 Mg Tablet PO 10 mg HS IKE Administration Metformin HCl 1,000 mg 11/27/21 10:42 11/27/21 16:14 Metformin Hcl Xr 500 Mg Tab.Sr.24h PO Not Given DAILY IKE Metoprolol Succinate 50 mg 11/27/21 10:42 11/27/21 11:05 Metoprolol Succinate Ext Rel 50 Mg Tabcr PO Not Given DAILY IKE Desvenlafaxine 2 each 11/27/21 21:00 11/27/21 21:13 Succinate [Pristiq] PO 12/27/21 20:59 2 each 50 Mg Tablet Er Take HS IKE Administration 2 Tabs Po Hs Ondansetron HCl 4 mg 11/27/21 10:42 Ondansetron Inj 4 Mg/2 Ml Vial IV PUSH Q6H PRN Nausea Pantoprazole Sodium 40 mg 11/27/21 10:42 11/27/21 16:14 Pantoprazole 40 Mg Tablet PO Not Given QAM SC
[2021-11-28 07:55] VITALS: BP 127/76; PULSE 107; RESP 18; TEMP 36.9; O2SAT 95
[2021-11-28] MEDS: POLYSACCHARIDE IRON COMPLEX 150 MG CAPSULE PO ×2 (09:33→16:30)
[2021-11-28] MEDS: metFORMIN HCL XR 500 MG TAB.SR.24H 1000 MG PO (09:34)
[2021-11-28 09:35] VITALS: PULSE 90
[2021-11-28] MEDS: METOPROLOL SUCCINATE EXT REL 50 MG TABCR PO (09:35)
[2021-11-28] MEDS: PANTOPRAZOLE 40 MG TABLET PO (09:36)
[2021-11-28] MEDS: SPIRONOLACTONE 50 MG TABLET 100 MG PO (09:36)
[2021-11-28] MEDS: hydroCHLOROthiazide 12.5 MG CAPSULE PO (09:37)
--- NOTE | 2021-11-28 10:17 | WPDANESPN ---
Anes - Prog Note Post-Op Date/Time: 11/28/21 10:17 Cardiovascular status: normal Respiratory status: normal Airway patency: baseline Mental status: baseline Post-Op hydration status: normal Vital Signs: Last Vital Signs Temp 36.9 C 11/28/21 07:55 Pulse 90 11/28/21 09:35 Resp 18 11/28/21 07:55 BP 127/76 11/28/21 07:55 Pulse Ox 95 11/28/21 07:55 Pain Score (VAS): 3 I/O: Intake & Output 11/27/21 11/28/21 11/28/21 23:59 07:59 15:59 Intake Total 1845 1240 Output Total 475 1025 Balance 1370 215 Laboratory Tests 11/28/21 04:00 11/28/21 04:00 WBC 15.6 H RBC 2.85 L Hgb 8.5 L D Hct 26.0 L MCV 91.2 MCH 29.8 MCHC 32.7 RDW 13.3 Plt Count 333 MPV 11.6 H Immature Gran % (Auto) 0.4 Neut % (Auto) 73.8 H Lymph % (Auto) 16.8 L [place] % (Auto) 8.9 H Eos % (Auto) 0.0 Baso % (Auto) 0.1 L Lymph # (Auto) 2.61 [place] # (Auto) 1.4 H Eos # (Auto) 0.0 Baso # (Auto) 0.0 Abs Immat Gran (auto) 0.06 H Absolute Neuts (auto) 11.5 H Absolute Nucleated RBC 0.0 Nucleated RBC % 0.0 Post-procedural complaints: none Patient Feedback: Patient satisfied with anesthetic care.
[2021-11-28 14:17] LABS: Hematocrit 23.3 % (37.0-47.0); Hemoglobin 7.4 g/dL (12.0-15.0)
[2021-11-28 16:31] VITALS: BP 115/63; PULSE 101; RESP 16; TEMP 36.7; O2SAT 95
[2021-11-28 19:10] VITALS: BP 92/46; PULSE 98; RESP 18; TEMP 36.4; O2SAT 98
[2021-11-28] MEDS: IBUPROFEN 600 MG TABLET PO (19:11)
[2021-11-28] MEDS: DOCUSATE SODIUM 100 MG CAPSULE (19:21)
[2021-11-28] MEDS: LORATADINE 10 MG TABLET PO (20:42)
[2021-11-28] MEDS: HYDROcodone/acetaminophen (*CRX) 5-325 MG TABLET 1 TAB PO (20:44)
[2021-11-28 22:55] VITALS: BP 131/56; PULSE 98; RESP 18; TEMP 36.8; O2SAT 94
[2021-11-29] VITALS (12 sets, daily range): BP systolic 92–127; BP diastolic 52–64; PULSE 88–109; RESP 16–20; TEMP 36–37.1; O2SAT 93–100
[2021-11-29] MEDS: IBUPROFEN 600 MG TABLET PO ×3 (02:22→18:00)
[2021-11-29] MEDS: HYDROcodone/acetaminophen (*CRX) 5-325 MG TABLET 1 TAB PO ×5 (02:24→23:53)
[2021-11-29 05:26] LABS: Hemoglobin 6.7 g/dL (12.0-15.0)
[2021-11-29 05:27] LABS: Hematocrit 20.3 % (37.0-47.0)
--- NOTE | 2021-11-29 05:51 | PC.NURSE ---
Pt called out stating she just voided and there was a clot in the hat. 400ml of clear yellow urine noted with only small flat clot present, estimated to be approx 10ml. Pt informed to hold her breakfast until Dr. Banks rounds this morning at approximately 0700. Pt verbalized understanding of info presented.
--- NOTE | 2021-11-29 07:22 | PM.GYNPNOP ---
DAIRY CONSULTANT - A/P Assessment and plan (1) Anemia: Code(s): D64.9 - Anemia, unspecified Status: Acute Assessment and Plan: Patient Hb still slowly trending down. Reviewed options in detail with patient including immediate return to OR, blood transfusion, tranexamic acid, and observation. Patient with mild symptoms and stable vitals, urine output, and exam. With patient decided to start tranexamic acid 1 g stat then q 8 hours and transfuse 2 units. Will recheck H/H in am tomorrow and if >8 will dc home on oral tranexamic acid. If less than 8 will return to OR tomorrow unless there is a change in status today. Postoperative Procedures: Procedures Operation Date: 11/27/21 07:30 Actual Procedure Side Surgeon p Total Abdominal Hysterectomy with Bilateral Salpingectomy, Left Oophorectomy, cystoscopy Bilateral Mary Banks MD Postoperative day: 2 Postoperative status: anemia Postoperative plan: see orders Time Spent With Patient Time: Total time spent is greater than 50% in coordination of care (as documented) at patient's floor/unit and/or counseling patient: Time with patient: 15 - 25 minutes DAIRY CONSULTANT- PN:Subj Post-Op Subjective Date/time seen: 11/29/21 07:22 Interval history: No nausea. Tolerating diet. Voiding and ambulating without complaint. Pain improved. No SOB but reports fatigue and feeling heart pounding stronger. Exam Narrative: abdomen soft, nt, nondistended inc c/d/i DAIRY CONSULTANT - PN: Obj Data Vital Signs Vital Signs: Vital Signs - 24 hr 11/28/21 07:55 11/28/21 09:35 11/28/21 16:31 Temperature 98.4 F 98.0 F Pulse Rate 107 H 90 101 H Respiratory Rate 18 16 Blood Pressure 127/76 115/63 Pulse Oximetry 95 95 11/28/21 19:10 11/28/21 22:55 11/29/21 05:09 Temperature 97.5 F L 98.3 F 97.6 F Pulse Rate 98 98 98 Respiratory Rate 18 18 20 Blood Pressure 92/46 L 131/56 L 104/52 L Pulse Oximetry 98 94 93 Intake/Output Intake/Output: Intake & Output 11/26/21 11/27/21 11/28/21 11/29/21 23:59 23:59 23:59 23:59 Intake Total 9085 8680 700 Output Total 852 7754 115 Balance 7845 -532 -839 Meds/Results Medications: Active Medications Generic Name Dose Route Start Last Admin Trade Name Freq PRN Reason Stop Dose Admin Hydrocodone Bitart/Acetaminophen 1 tab 11/27/21 10:42 11/28/21 16:28 Hydrocodone/Acetaminophen (*Crx) 10-325 Mg Tablet PO 1 tab Q3H PRN Administration Pain Rated 6 or Greater Hydrocodone Bitart/Acetaminophen 1 tab 11/27/21 10:42 11/29/21 02:24 Hydrocodone/Acetaminophen (*Crx) 5-325 Mg Tablet PO 1 tab Q3H PRN Administration Pain Rated 5 or Less Hydrochlorothiazide 12.5 mg 11/27/21 10:42 11/28/21 09:37 Hydrochlorothiazide 12.5 Mg Capsule PO 12.5 mg DAILY IKE Administration Fentanyl Citrate 600 mcg in 30 mls @ 0.5 mls/hr 11/27/21 10:42 11/27/21 16:55 Fentanyl 600 Mcg/Ns 30 Ml Principal Automation Engineer IV CONT Infused PRN PRN Titration VOCATIONAL PLACEMENT SPECIALIST Management Protocol 10 MCG/HR Tranexamic Acid/Sodium Chloride 1,000 mg in 100 mls @ 200 mls/hr 11/29/21 07:00 Tranexamic Acid 1,000mg/[id number] IVPB Q8H IKE Sodium Chloride 250 mls @ 30 mls/hr 11/29/21 07:08 Normal Saline Iv IV CONT 11/29/21 15:27 .Q8H20M STA Ibuprofen 600 mg 11/27/21 10:42 11/29/21 02:22 Ibuprofen 600 Mg Tablet PO 600 mg Q6H PRN Administration Cramping Loratadine 10 mg 11/27/21 21:00 11/28/21 20:42 Loratadine 10 Mg Tablet PO 10 mg HS IKE Administration Metformin HCl 1,000 mg 11/27/21 10:42 11/28/21 09:34 Metformin Hcl Xr 500 Mg Tab.Sr.24h PO 1,000 mg DAILY IKE Administration Metoprolol Succinate 50 mg 11/27/21 10:42 11/28/21 09:35 Metoprolol Succinate Ext Rel 50 Mg Tabcr PO 50 mg DAILY IKE Administration Desvenlafaxine 2 each 11/27/21 21:00 11/28/21 20:47 Succinate [Pristiq] PO 05/11/22 20:59 2 each 50 Mg Tablet Er Take HS IKE Administration 2 Tabs Po Hs Ondansetron HCl 4 mg 11/27/21 10:4
[2021-11-29] MEDS: SODIUM CHLORIDE 0.9% IV 250 ML 30 ML IV CONT (07:37)
[2021-11-29] MEDS: TRANEXAMIC ACID 1,000MG/ISO100 1,000 MG/100 ML BAG 200 MG IVPB ×3 (07:37→23:01)
[2021-11-29] MEDS: POLYSACCHARIDE IRON COMPLEX 150 MG CAPSULE PO ×2 (07:47→20:56)
[2021-11-29] MEDS: metFORMIN HCL XR 500 MG TAB.SR.24H 1000 MG PO (07:47)
[2021-11-29] MEDS: SIMETHICONE 80 MG TAB.CHEW PO ×2 (07:47→18:00)
[2021-11-29] MEDS: PANTOPRAZOLE 40 MG TABLET PO (07:48)
[2021-11-29] MEDS: LORATADINE 10 MG TABLET PO (20:53)
[2021-11-30] MEDS: HYDROcodone/acetaminophen (*CRX) 5-325 MG TABLET 1 TAB PO ×2 (04:28→09:50)
[2021-11-30 06:12] LABS: Hematocrit 25.5 % (37.0-47.0); Hemoglobin 8.4 g/dL (12.0-15.0)
[2021-11-30] MEDS: TRANEXAMIC ACID 1,000MG/ISO100 1,000 MG/100 ML BAG 200 MG IVPB (07:09)
--- NOTE | 2021-11-30 07:27 | PM.GYNPNOP ---
MARKETING SEGMENT MANAGER - A/P Assessment and plan (1) Anemia: Code(s): D64.9 - Anemia, unspecified Status: Acute Assessment and Plan: The patient feels better after transfusion. H/H appropriate increase. Will DC home on Lysteda 650mg-2 po TIDx 5 days. Patient to limit lifting and recommend after home not to be out in the car until next week. She has BP cuff at home and will monitor. Reviewed hemolysis of intraabdominal clot and that she may have watery bloody discharge increase as that happens. Patient to call if any questions or worries. Postoperative Procedures: Procedures Operation Date: 11/27/21 07:30 Actual Procedure Side Surgeon p Total Abdominal Hysterectomy with Bilateral Salpingectomy, Left Oophorectomy, cystoscopy Bilateral Mary Banks MD Postoperative day: 3 Postoperative status: doing well Postoperative plan: see orders and discharge Time Spent With Patient Time: Total time spent is greater than 50% in coordination of care (as documented) at patient's floor/unit and/or counseling patient: Time with patient: less than 15 minutes MARKETING SEGMENT MANAGER- PN:Subj Post-Op Subjective Date/time seen: 11/30/21 07:27 Interval history: No nausea. Tolerating diet. Voiding and ambulating without complaint. Pain improved. No SOB. No chest pain. Exam GI: Inspection: incision (c/d/i) GI Palp: Yes abdominal tenderness (appropriate) and Yes Soft to palpation Percussion: Yes normal to percussion Auscultation: normal bowel sounds MARKETING SEGMENT MANAGER - PN: Obj Data Vital Signs Vital Signs: Vital Signs - 24 hr 11/29/21 07:55 11/29/21 10:42 11/29/21 11:00 Temperature 96.8 F L 97.8 F 98.3 F Pulse Rate 96 109 H 88 Respiratory Rate 18 18 16 Blood Pressure 102/63 95/54 L 92/53 L Pulse Oximetry 96 97 98 11/29/21 12:07 11/29/21 13:00 11/29/21 13:30 Temperature 98.2 F 97.0 F L 97.9 F Pulse Rate 98 100 104 H Respiratory Rate 16 16 16 Blood Pressure 105/54 L 113/58 L 97/54 L Pulse Oximetry 99 97 98 11/29/21 17:32 11/29/21 17:44 11/29/21 18:00 Temperature 97.6 F 97.6 F 97.9 F Pulse Rate 97 97 104 H Respiratory Rate 16 16 16 Blood Pressure 113/58 L 113/58 L 119/64 Pulse Oximetry 99 99 97 11/29/21 19:00 11/29/21 20:12 Temperature 98.8 F 98.3 F Pulse Rate 106 H 109 H Respiratory Rate 16 16 Blood Pressure 127/63 115/64 Pulse Oximetry 100 98 Intake/Output Intake/Output: Intake & Output 11/27/21 11/28/21 11/29/21 11/30/21 23:59 23:59 23:59 23:59 Intake Total 3585 2520 3200 Output Total 715 2625 3000 300 Balance 2870 -105 200 -300 Meds/Results Medications: Active Medications Generic Name Dose Route Start Last Admin Trade Name Freq PRN Reason Stop Dose Admin Hydrocodone Bitart/Acetaminophen 1 tab 11/27/21 10:42 11/28/21 16:28 Hydrocodone/Acetaminophen (*Crx) 10-325 Mg Tablet PO 1 tab Q3H PRN Administration Pain Rated 6 or Greater Hydrocodone Bitart/Acetaminophen 1 tab 11/27/21 10:42 11/30/21 04:28 Hydrocodone/Acetaminophen (*Crx) 5-325 Mg Tablet PO 1 tab Q3H PRN Administration Pain Rated 5 or Less Hydrochlorothiazide 12.5 mg 11/27/21 10:42 11/29/21 22:50 Hydrochlorothiazide 12.5 Mg Capsule PO Not Given DAILY IKE Tranexamic Acid/Sodium Chloride 1,000 mg in 100 mls @ 200 mls/hr 11/29/21 07:00 11/30/21 07:09 Tranexamic Acid 1,000mg/[id number] IVPB 200 mls/hr Q8H IKE Administration Ibuprofen 600 mg 11/27/21 10:42 11/29/21 18:00 Ibuprofen 600 Mg Tablet PO 600 mg Q6H PRN Administration Cramping Loratadine 10 mg 11/27/21 21:00 11/29/21 20:53 Loratadine 10 Mg Tablet PO 10 mg HS IKE Administration Metformin HCl 1,000 mg 11/27/21 10:42 11/29/21 07:47 Metformin Hcl Xr 500 Mg Tab.Sr.24h PO 1,000 mg DAILY IKE Administration Metoprolol Succinate 50 mg 11/27/21 10:42 11/29/21 22:51 Metoprolol Succinate Ext Rel 50 Mg Tabcr PO Not Given DAILY IKE Desvenlafaxine 2 each 11/27/21 21:00 11/29/21 20:53 Succinate [Pristiq] PO
[2021-11-30 07:46] VITALS: BP 145/81; PULSE 92; RESP 20; TEMP 36.7; O2SAT 96
[2021-11-30 08:00] VITALS: PULSE 92; RESP 20; O2SAT 96
[2021-11-30] MEDS: POLYSACCHARIDE IRON COMPLEX 150 MG CAPSULE PO (08:46)
[2021-11-30] MEDS: metFORMIN HCL XR 500 MG TAB.SR.24H 1000 MG PO (09:50)
[2021-11-30 09:51] VITALS: PULSE 92
[2021-11-30] MEDS: METOPROLOL SUCCINATE EXT REL 50 MG TABCR PO (09:51)
[2021-11-30] MEDS: PANTOPRAZOLE 40 MG TABLET PO (09:51)
[2021-11-30] MEDS: SPIRONOLACTONE 50 MG TABLET 100 MG PO (09:51)
[2021-11-30] MEDS: hydroCHLOROthiazide 12.5 MG CAPSULE PO (09:51)
== END 2021-11-30 11:20 | disposition home or self-care (01) | DRG 743 ==
LOC: ANHOB2 11-28 11:07 → ANHSURGERY 12-06 14:55 → ANHOB2 12-06 14:56
PROVIDERS: Admitting Provider Obstetrics & Gynecology Gynecology; PCP Family Medicine; Visit Provider Obstetrics & Gynecology Gynecology
PROC: 0UT94ZZ Resection of Uterus, Percutaneous Endoscopic Approach (ICD-10-PCS; CPT 58150; principal; 2021-11-27 07:30)
DX: N92.0 Excessive and frequent menstruation with regular cycle (principal); R10.2 Pelvic and perineal pain; G89.29 Other chronic pain; D25.2 Subserosal leiomyoma of uterus; D27.1 Benign neoplasm of left ovary; N73.6 Female pelvic peritoneal adhesions (postinfective); N70.11 Chronic salpingitis; N80.0 Endometriosis of uterus; E28.2 Polycystic ovarian syndrome; R31.9 Hematuria, unspecified; D64.9 Anemia, unspecified; I10 Essential (primary) hypertension; J45.909 Unspecified asthma, uncomplicated; K21.9 Gastro-esophageal reflux disease without esophagitis; F41.9 Anxiety disorder, unspecified; Z98.1 Arthrodesis status; E66.9 Obesity, unspecified; Z68.31 Body mass index [BMI] 31.0-31.9, adult
CPT/HCPCS: 58150; 52000; 36415; 36430; 80048; 85014; 85018; 85025; 86850; 86900; 86901; 86920; 88307; 93005; 99199; A9270; G0378; J0690; J1100; J1170; J2250; J2405; J2704; J2710; J3010; J7030; J7050; J7120; J7121; P9016

== ENCOUNTER 2021-12-25 16:11 | Inpatient (IN) | payer OTHER, SELFPAY ==
[2021-12-25] VITALS (13 sets, daily range): BP systolic 135–158; BP diastolic 73–87; PULSE 75–87; RESP 16; TEMP 36.4; O2SAT 98–100
--- NOTE | ~2021-12-25 | CT_ITS ---
EXAMINATION: CT guide absc cath placement, CT guide absc cath placement DATE: 12/26/2021 16:37 (accession [id number]), 12/26/2021 16:34 (accession [id number]) INDICATION: Postoperative pelvic and left lower quadrant abscesses. TECHNIQUE: The procedure including the risks and benefits was discussed with the patient. Risks discu ssed included bleeding and infection. The patient understood the risks and benefits and agreed to pro ceed. The patient was confirmed to be receiving appropriate antibiotic coverage. The patient was plac ed in prone position for drainage catheter placement targeting initially the pelvic fluid collection. Conscious sedation was provided utilizing 150 mcg of fentanyl and 1 mg of Versed IV during the first abscess drainage catheter placement with an additional 50 mg of fentanyl given IV during the second abscess drainage catheter placement for a total dosage of 200 mcg fentanyl and 1 mg Versed. The skin overlying the left side of the coccyx was prepped and draped in usual sterile fashion. Anesthetic wa s administered with 1% lidocaine subcutaneously. An 18-gauge trochar needle was inserted into the pel mercedez peritoneal fluid collection utilizing intermittent CT guidance. The inner needle was removed and a J-wire advanced through the needle with position within the fluid collection confirmed by CT. Utili zing Seldinger technique the needle was removed over the wire and the tract serially dilated to 10 Fr ench. A 10 Anguillan catheter was then inserted into the fluid collection over the wire and the loop for med with position confirmed by CT. The wire was removed and the catheter was stitched to the skin wit h suture. 2 mL thick almost gelatinous dark maroon-colored fluid was aspirated and sent to the lab fo r Gram stain and cultures. Antibiotic ointment and a sterile dressing were applied. The patient was t hen placed in supine position and the skin overlying the left lower quadrant was sterilely prepped an d draped. Anesthetic was administered with 1% lidocaine subcutaneously. Utilizing similar Seldinger t echnique the fluid collection was accessed with CT guidance with an 18-gauge needle, the tract serial ly dilated to 10 Anguillan and a 10 Anguillan catheter placed into the fluid collection. Catheter loop was formed and locked with positioning confirmed by CT. The catheter was then stitched to the skin and an tibiotic ointment and a sterile dressing were applied. An additional adhesive fixation device was rex lied. 2 mL of dark maroon-colored fluid was aspirated also sent to the lab for Gram stain and culture s. Previously there had been spontaneous efflux of more serous reddish orange-colored fluid which occ urred during tract dilation and catheter placement. There were no immediate complications. The dose-l ength product was 357.68 mGy-cm. FINDINGS: CT images demonstrate placement of a 10 Anguillan catheter within the deep pelvic abscess cavi ty. Subsequent CT images demonstrate a second 10 Anguillan catheter placed within a now decompressed lef t lower quadrant abscess cavity. 2 mL of dark bloody fluid was aspirated for testing from each absce ss cavity. IMPRESSION: 1. Successful CT-guided abscess drainage catheter placement in the deep pelvis loculated fluid collec tion. 2 mL fluid was sent for aerobic and anaerobic cultures. 2. Successful CT-guided abscess drainage catheter placement in a left lower quadrant loculated fluid collection. 2 mL fluid was sent for aerobic and anaerobic cultures. 3. The catheter will be managed by Dr. Mcbride. Reviewed, dictated and finalized at location A. IMPRESSION: 1. Successful CT-guided abscess drainage catheter placement in the deep pelvis loculated fluid collection. 2 mL fluid was sent for aerobic and anaerobic cultu res. 2. Successful CT-guided
--- NOTE | ~2021-12-25 | CT_ITS ---
EXAMINATION: CT abdomen pelvis w con DATE: 12/25/2021 20:36 INDICATION: Vaginal bleeding status post hysterectomy TECHNIQUE: Computed tomography (CT) of the abdomen and pelvis was performed with 100 mL Omnipaque-300 intravenous contrast. Automated exposure control and iterative reconstruction technique were employe d. The dose-length product was 735.71 mGy-cm. COMPARISON: None FINDINGS: Lower thorax: Unremarkable Liver: Normal. Right lobe cyst. Biliary/Gallbladder: Gallbladder is normal. No bile duct dilation. Spleen: Normal. Pancreas: No mass or duct dilation. Adrenals:No mass. Kidneys: No mass, stone, or hydronephrosis. GI tract: No small or large bowel dilation. Appendix not visualized. Mesentery/Peritoneum: Irregular 3.1 cm x 2.5 cm fluid collection in the inferior left paracolic gutte r, with surrounding wall enhancement and a punctate locule of gas. Retroperitoneum: No mass. Pelvis: Uterus surgically absent. Irregular, rim-enhancing 3.9 x 5.7 cm fluid collection in the deep pelvis possibly in communication with an lobulated rim-enhancing collection in the right adnexa measu ring 4.8 x 3.2 cm. Soft Tissues: Post surgical change in the lower anterior abdominal wall. Bones: No acute osseous finding. IMPRESSION: Findings concerning for extensive postoperative abscess formation involving the uterine bed, right ad nexa, and left inferior paracolic gutter. No active extravasation. Results discussed with Dr. Fontanez by Dr. Can telephonically at 0900 p.m. on 12/25/2021. Reviewed, dictated and finalized at location K. IMPRESSION: Findings concerning for extensive postoperative abscess formation involving the uterine bed, right adnexa, and left inferior paracolic gutter. No active extra vasation. Results discussed with Dr. Fontanez by Dr. Can telephonically at 0900 p.m. on 12/25/2021.
[2021-12-25 17:07] LABS: Basophils Percent Auto 0.2 % (0.2-1.2); Eosinophils Absolute Auto 0.2 K/mm3 (0-0.3); Eosinophils Percent Auto 1.6 % (0-4.4); Hematocrit 39.4 % (37.0-47.0); Hemoglobin 12.2 g/dL (12.0-15.0); Immature Granulocyte Absolute 0.05 K/mm3 (0.00-0.031); Immature Granulocyte Percent A 0.4 % (0-0.5); Lymphocytes Absolute Auto 2.91 K/mm3 (0.9-3.2); Lymphocytes Percent Auto 23.5 % (18.3-44.2); Mean Corpuscular Hemoglobin 27.5 pg (26-34); Mean Corpuscular Volume 88.7 fl (80-100); Mean Platelet Volume 10.8 fl (7.4-10.4); Monocytes Absolute Auto 0.8 K/mm3 (0.1-0.6); Monocytes Percent Auto 6.3 % (2.6-8.5); Neutrophils Absolute Auto 8.4 K/mm3 (1.3-6.7); Platelet Count Result 410 k/mm3 (150-375); Red Blood Count 4.44 M/mm3 (4.2-5.4); Red Cell Distribution Width 14.6 % (11.5-14.5); White Blood Count 12.4 K/mm3 (4.5-10.0)
[2021-12-25 17:17] LABS: Alanine Aminotransferase 13 U/L (6-35); Albumin Level 4.8 g/dL (3.5-5.1); Alkaline Phosphatase 69 U/L (38-126); Anion Gap 10 mmol/L (8-16); Aspartate Amino Transferase 20 U/L (14-36); Bilirubin,Total 0.2 mg/dL (0.2-1.3); Blood Urea Nitrogen 12 mg/dL (7-17); Calcium 9.9 mg/dL (8.4-10.2); Carbon Dioxide 27 mmol/L (22-30); Chloride 101 mmol/L (98-107); Estimated CRCL calculation 81 ml/min; Estimated Glomerular Filt Rate > 60; Glucose 88 mg/dL (65-110); Potassium 4.1 mmol/L (3.4-5.0); Sodium 138 mmol/L (137-145)
--- NOTE | 2021-12-25 19:47 | ED.FEMALEGU ---
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 Presents with heavy vaginal bleeding over the last 3 weeks lately including blood clots. She denies any fever, chills, nausea, vomiting, shortness of breath, chest pain, lightheadedness, dizziness or headache. Patient required 2 units of blood transfusion after the surgery. History of hypertension, admit with IV tumor, and left ovarian benign tumor Related Data Home Medications Medication Instructions Recorded Confirmed desvenlafaxine succinate [Pristiq] 100 mg PO HS 10/18/21 11/27/21 hydrochlorothiazide 12.5 mg PO DAILY 10/18/21 11/27/21 levocetirizine [Xyzal] 5 mg PO HS 10/18/21 11/27/21 metformin 1,000 mg PO DAILY 10/18/21 11/27/21 metoprolol succinate 50 mg PO DAILY 10/18/21 11/27/21 pantoprazole 40 mg PO QA 10/18/21 11/27/21 spironolactone 100 mg PO DAILY 10/18/21 11/27/21 meloxicam [Mobic] 7.5 mg PO DAILY 10/23/21 11/27/21 Allergies Allergy/AdvReac Type Severity Reaction Status Date / Time ketorolac [From Toradol] AdvReac Nausea and Verified 12/25/21 19:32 Vomiting Review of Systems Review of Systems: CONSTITUTIONAL: Denies fever, chills, or sweats. EYES: Denies visual changes, redness, or discharge. ENT: Denies rhinorrhea, congestion, sore throat, or otalgia. CARDIOVASCULAR: Denies chest pain, palpitations, or edema. RESPIRATORY: Denies cough or dyspnea. GASTROINTESTINAL: Denies abdominal pain, nausea, vomiting, or diarrhea. GENITOURINARY: Denies dysuria or hematuria. SKIN: Denies rash or itching. MUSCULOSKELETAL: Denies back pain, joint pain, or myalgia. NEUROLOGIC: Denies headache, numbness, or weakness. PSYCHIATRIC: Denies anxiety or depression. [facility] Past Medical History Medical History Anxiety Asthma GERD (gastroesophageal reflux disease) Hypertension PCOS (polycystic ovarian syndrome) PONV (postoperative nausea and vomiting) Surgical History Surgical History H/O sinus surgery History of bilateral tubal ligation History of X2 History of hysteroscopy History of spinal fusion Status post right breast lumpectomy 2018 Social History Social History Smoking status: Never smoker Alcohol intake: current Alcohol use details: VERY RARE Substance use: never Substance use type: does not use Spiritual care concerns: No Exam Narrative: General appearance: Well-developed, well-nourished Skin: Normal color Head: Normocephalic, nontraumatic Eyes: Clear conjunctiva ENT: Oropharynx normal, ears normal, nose normal Neck: Supple, nontender Chest and respiratory: Airway patent, no respiratory distress, no accessory muscle use Heart: Regular rate/rhythm Abdomen: Soft, mild diffuse tenderness lower abdomen mainly left lower quadrant, no rebound or guarding, no organomegaly, quiet bowel sounds Vascular: Normal peripheral pulses, normal capillary refill. Musculoskeletal: Normal range of motion, nontender back Neurologic: Alert and oriented ?3, PATIENT NAVIGATOR is normal as tested, no gross motor deficit : External Female Exam: normal external appearance and normal appearance of the urethra Speculum Exam - Vagina: normal appearance of the vagina and abnormal vaginal discharge Speculum Exam - Cervix:
--- NOTE | 2021-12-25 21:20 | PC.NURSE ---
ERP performed pelvic exam. RN at bedside to witness. Pt tolerated well. light bleeding noted. 4 q tip swabs used.
[2021-12-25] MEDS: LACTATED RINGERS 1,000 ML 125 ML IV CONT (21:47)
[2021-12-26] VITALS (33 sets, daily range): BP systolic 113–156; BP diastolic 67–90; PULSE 69–93; RESP 12–20; TEMP 36.2–36.4; O2SAT 97–100
--- NOTE | 2021-12-26 00:04 | ADMGEN ---
This patient, Hafsa Gu, was admitted to [facility] Surg Room 327-01. Patient/family oriented to hospital policies and general routines including ID bracelet, bed and alarms, visiting hours, pain management, procedures, bathroom and other care routines, personal items, smoking policy, room service/diet, and visiting hours. Information on how to activate the Rapid Response Team has been discussed. Patient/Family are encouraged to report perceived risks to care and to ask questions if they do not understand what they are told or what they should do.
[2021-12-26 06:23] LABS: Basophils Percent Auto 0.4 % (0.2-1.2); Eosinophils Absolute Auto 0.3 K/mm3 (0-0.3); Eosinophils Percent Auto 2.4 % (0-4.4); Hematocrit 34.9 % (37.0-47.0); Hemoglobin 10.8 g/dL (12.0-15.0); Immature Granulocyte Absolute 0.05 K/mm3 (0.00-0.031); Immature Granulocyte Percent A 0.5 % (0-0.5); Lymphocytes Absolute Auto 3.22 K/mm3 (0.9-3.2); Lymphocytes Percent Auto 31.2 % (18.3-44.2); Mean Corpuscular HGB Conc 30.9 g/dl (32-36); Mean Corpuscular Hemoglobin 27.4 pg (26-34); Mean Corpuscular Volume 88.6 fl (80-100); Mean Platelet Volume 10.8 fl (7.4-10.4); Monocytes Absolute Auto 0.7 K/mm3 (0.1-0.6); Monocytes Percent Auto 6.5 % (2.6-8.5); Neutrophils Absolute Auto 6.1 K/mm3 (1.3-6.7); Platelet Count Result 358 k/mm3 (150-375); Red Blood Count 3.94 M/mm3 (4.2-5.4); Red Cell Distribution Width 14.7 % (11.5-14.5); White Blood Count 10.3 K/mm3 (4.5-10.0)
--- NOTE | 2021-12-26 06:51 | PM.IMHP ---
H&P: HPI History of Present Illness Date/Time: 12/26/21 06:51 46-year-old female admitted last night through the emergency room with vaginal bleeding. Found to have pelvic abscess and admitted for IV antibiotics. underwent abdominal hysterectomy in early November without any significant incident at that time. Postoperatively a drop in hemoglobin and consistent with blood loss at time of surgery and was given 2units of pack red blood cells which resolved her anemia. She was discharged home on postoperative day 3 without incident. While at home patient has been tolerating regular diet voiding stooling no nausea vomiting no diarrhea constipation. She has continue with vaginal discharge and discolored fluid which has not decreased since her procedure. She called the office to receive guidance on what to do for the continued vaginal bleeding and was instructed in the emergency room at which time a CT scan was performed and abscess was noted as above. Chief Complaint: Vaginal bleeding Review of Systems Review of Systems: All systems reviewed & are unremarkable except as noted in HPI and below PMFSH Past Medical History Medical History Anxiety Asthma GERD (gastroesophageal reflux disease) Hypertension PCOS (polycystic ovarian syndrome) PONV (postoperative nausea and vomiting) Surgical History Surgical History H/O sinus surgery History of bilateral tubal ligation History of X2 History of hysteroscopy History of spinal fusion Status post right breast lumpectomy 2018 Family History Family History Mother Diabetes mellitus Breast cancer Father Hypertension Social History Social History Smoking status: Never smoker Alcohol intake: never Alcohol use details: VERY RARE Substance use: never Substance use type: does not use Spiritual care concerns: No Meds Home Medications and Allergies Home Medications Medication Instructions Recorded Confirmed Type desvenlafaxine succinate [Pristiq] 100 mg PO HS 10/18/21 12/26/21 History hydrochlorothiazide 12.5 mg PO DAILY 10/18/21 12/26/21 History metformin 1,000 mg PO DAILY 10/18/21 12/26/21 History metoprolol succinate 50 mg PO DAILY 10/18/21 12/26/21 History pantoprazole 40 mg PO QAM 10/18/21 12/26/21 History spironolactone 100 mg PO DAILY 10/18/21 12/26/21 History meloxicam [Mobic] 7.5 mg PO DAILY 10/23/21 12/26/21 History loratadine [Claritin] 10 mg PO DAILY 12/26/21 12/26/21 History Allergies Allergy/AdvReac Type Severity Reaction Status Date / Time ketorolac [From Toradol] AdvReac Nausea and Verified 12/25/21 19:32 Vomiting Vital Signs Vital Signs - 24 hr 12/25/21 16:49 12/25/21 19:30 12/25/21 19:32 Temperature 97.5 F L Pulse Rate 87 78 Respiratory Rate 16 16 Blood Pressure 136/76 154/81 H Pulse Oximetry 100 100 100 12/25/21 19:33 12/25/21 19:45 12/25/21 19:47 Temperature Pulse Rate Respiratory Rate Blood Pressure 151/87 H Pulse Oximetry 100 100 98 12/25/21 20:00 12/25/21 20:02 12/25/21 20:41 Temperature Pulse Rate Respiratory Rate Blood Pressure 143/87 H 158/87 H Pulse Oximetry 99 99 100 12/25/21 20:42 12/25/21 20:45 12/25/21 21:00 Temperature Pulse Rate Respiratory Rate Blood Pressure Pulse Oximetry 99 98 99 12/25/21 21:01 12/26/21 00:00 12/26/21 05:58 Temperature 97.2 F L 97.6 F Pulse Rate 75 69 93 Respiratory Rate 16 18 18 Blood Pressure 135/73 148/71 H 113/67 Pulse Oximetry 99 98 99 Exam Const: General: cooperative, healthy appearing and comfortable Resp: Effort & Inspection: normal respiratory effort Auscultation: clear to auscultation bilaterally Cardio: Rate: regular rate Rhythm: regular rhythm GI: Inspect
[2021-12-26 09:04] LABS: Alanine Aminotransferase 11 U/L (6-35); Albumin Level 3.9 g/dL (3.5-5.1); Alkaline Phosphatase 67 U/L (38-126); Anion Gap 7 mmol/L (8-16); Aspartate Amino Transferase 23 U/L (14-36); Bilirubin,Total 0.2 mg/dL (0.2-1.3); Blood Urea Nitrogen 12 mg/dL (7-17); Carbon Dioxide 27 mmol/L (22-30); Chloride 103 mmol/L (98-107); Estimated CRCL calculation 92 ml/min; Estimated Glomerular Filt Rate > 60; Glucose 90 mg/dL (65-110); Potassium 3.3 mmol/L (3.4-5.0); Sodium 137 mmol/L (137-145)
[2021-12-26] MEDS: LORATADINE 10 MG TABLET PO (09:24)
[2021-12-26] MEDS: METOPROLOL SUCCINATE EXT REL 50 MG TABCR PO (09:25)
[2021-12-26] MEDS: hydroCHLOROthiazide 12.5 MG CAPSULE PO (09:25)
[2021-12-26] MEDS: SPIRONOLACTONE 50 MG TABLET 100 MG PO (09:25)
[2021-12-26] MEDS: PANTOPRAZOLE 40 MG TABLET PO (09:26)
[2021-12-26] MEDS: metFORMIN HCL XR 500 MG TAB.SR.24H 1000 MG PO (09:26)
[2021-12-26] MEDS: MELOXICAM 7.5 MG TABLET PO (09:26)
[2021-12-26 10:43] LABS: INR 1.2; Partial Thromboplastin Time 31.5 SECONDS (22.3-36.8); Prothrombin Time 14.5 Seconds (11.1-14.7)
[2021-12-26] MEDS: DESVENLAFAXINE SUCCINATE 50 MG TAB.ER.24H 100 MG PO ×2 (11:07→20:14)
[2021-12-26 13:16] LABS: Glucose Point of Care 67 mg/dl (65-105)
--- NOTE | 2021-12-26 14:56 | SUR.OPER ---
D5LR hanging at 150 cc/hr per order post hypoglycemia while on medsurg floor prior to procedure. Patient's fingerstick blood glucose checked and was 94.
--- NOTE | 2021-12-26 16:03 | SUR.OPER ---
Fingerstick blood glucose checked and was 136. D5LR still running at 125 cc/hr.
--- NOTE | 2021-12-26 16:40 | SUR.OPER ---
D5LR stopped after 250 cc infused.
--- NOTE | 2021-12-26 16:43 | WPDMODSED ---
Moderate Sedation Note-Pt Data Patient Data Allergies Allergy/AdvReac Type Severity Reaction Status Date / Time ketorolac [From Toradol] AdvReac Nausea and Verified 12/25/21 19:32 Vomiting Home Medications Medication Instructions Recorded Confirmed Type desvenlafaxine succinate [Pristiq] 100 mg PO HS 10/18/21 12/26/21 History hydrochlorothiazide 12.5 mg PO DAILY 10/18/21 12/26/21 History metformin 1,000 mg PO DAILY 10/18/21 12/26/21 History metoprolol succinate 50 mg PO DAILY 10/18/21 12/26/21 History pantoprazole 40 mg PO QAM 10/18/21 12/26/21 History spironolactone 100 mg PO DAILY 10/18/21 12/26/21 History meloxicam [Mobic] 7.5 mg PO DAILY 10/23/21 12/26/21 History loratadine [Claritin] 10 mg PO DAILY 12/26/21 12/26/21 History Current Medications: Active Medications Acetaminophen (Acetaminophen 325 Mg Tablet) 650 mg PO Q4H PRN PRN Reason: Mild Pain (1-3) or Fever Desvenlafaxine Succinate (Desvenlafaxine Succinate 50 Mg Tab.Er.24h) 100 mg PO [facility] Hydrochlorothiazide (Hydrochlorothiazide 12.5 Mg Capsule) 12.5 mg PO DAILY [facility] Last Admin: 12/26/21 09:25 Dose: 12.5 mg Documented by: Piperacillin/Tazobactam/Dextrose (Zosyn 3.375 Gm/D5w 50ml Pm) 3.375 gm in 50 mls @ 100 mls/hr IVPB Q6HR [facility] Last Admin: 12/26/21 13:01 Dose: 100 mls/hr Documented by: Lactated Ringer's (Lr - Lactated Ringers Iv) 1,000 mls @ 125 mls/hr IV CONT .Q8H [facility] Last Admin: 12/25/21 21:47 Dose: 125 mls/hr Documented by: Loratadine (Loratadine 10 Mg Tablet) 10 mg PO DAILY [facility] Last Admin: 12/26/21 09:24 Dose: 10 mg Documented by: Meloxicam (Meloxicam 7.5 Mg Tablet) 7.5 mg PO DAILY [facility] Last Admin: 12/26/21 09:26 Dose: 7.5 mg Documented by: Metformin HCl (Metformin Hcl Xr 500 Mg Tab.Sr.24h) 1,000 mg PO DAILY [facility] Last Admin: 12/26/21: Dose: 1,000 mg Documented by: Metoprolol Succinate (Metoprolol Succinate Ext Rel 50 Mg Tabcr) 50 mg PO DAILY [facility] Last Admin: 12/26/21 09:25 Dose: 50 mg Documented by: Pantoprazole Sodium (Pantoprazole 40 Mg Tablet) 40 mg PO QAM [facility] Last Admin: 12/26/21: Dose: 40 mg Documented by: Spironolactone (Spironolactone 50 Mg Tablet) 100 mg PO DAILY [facility] Last Admin: 12/26/21: Dose: 100 mg Documented by: Sedation/Anesthesia: No previous sedation/anesthesia problems (including family history). [facility] Past Medical History Medical History Anxiety Asthma GERD (gastroesophageal reflux disease) Hypertension PCOS (polycystic ovarian syndrome) PONV (postoperative nausea and vomiting) Surgical History Surgical History H/O sinus surgery History of bilateral tubal ligation History of X2 History of hysteroscopy History of spinal fusion Status post right breast lumpectomy 2018 Family History Family History Mother Diabetes mellitus Breast cancer Father Hypertension Social History Social History Smoking status: Never smoker Alcohol intake: never Alcohol use details: VERY RARE Substance use: never Substance use type: does not use Spiritual care concerns: No Mod Sed Physical Exam Physical Exam Pre Procedural Exam: Normal: Appearance, Eyes, Throat, Airway, Lungs, Heart Rate, Heart Rhythm, Abdomen and Extremities Hours since solid foods: 6 Hours since liquid intake: 6 Mallampati Classification: class II Internal Medicine - PN: Obj Da Vital Signs Vital Signs: Vital Signs - 24 hr 12/25/21 16:49 12/25/21 19:30 12/25/21 19:32 Temperature 97.5 F L Pulse Rate 87 78 Respiratory Rate 16 16 Blood Pressure 136/76 154/81 H Pulse Oximetry 100 100 100 12/25/21 19:33 12/25/21 19:45 12/25/21 19:47 Temperature Pulse Rate Respiratory Rate Blood Pressure 151/87 H Pulse Oximetry 100 100 98 12/25/21 20:00
--- NOTE | 2021-12-26 16:47 | SUR.PHASEII ---
Please see intraop charting. Patient remained stable during and post procedure after monitoring for 30 minutes post procedure.
[2021-12-26 16:54] LABS: Glucose Point of Care 94 mg/dl (65-105)
[2021-12-26 16:54] LABS: Glucose Point of Care 136 mg/dl (65-105)
[2021-12-26 17:09] LABS: Glucose Point of Care 110 mg/dl (65-105)
[2021-12-26] MEDS: ACETAMINOPHEN 325 MG TABLET 650 MG PO (18:32)
--- NOTE | 2021-12-26 19:23 | PC.NURSE ---
D5/LR 250ml Bolus ONCE ONE given in CAT Scan.
[2021-12-26] MEDS: HYDROcodone/acetaminophen (*CRX) 5-325 MG TABLET 1 TAB PO (20:14)
[2021-12-27 03:23] VITALS: BP 117/75; PULSE 70; RESP 18; TEMP 36.2; O2SAT 98
[2021-12-27 05:43] VITALS: BP 109/68; PULSE 73; RESP 18; TEMP 36.2; O2SAT 99
[2021-12-27] MEDS: HYDROcodone/acetaminophen (*CRX) 5-325 MG TABLET 1 TAB PO ×2 (06:10→14:41)
[2021-12-27 06:38] LABS: Hematocrit 35.2 % (37.0-47.0); Hemoglobin 10.7 g/dL (12.0-15.0); Mean Corpuscular HGB Conc 30.4 g/dl (32-36); Mean Corpuscular Hemoglobin 27.3 pg (26-34); Mean Corpuscular Volume 89.8 fl (80-100); Platelet Count Result 333 k/mm3 (150-375); Red Blood Count 3.92 M/mm3 (4.2-5.4); Red Cell Distribution Width 14.9 % (11.5-14.5); White Blood Count 10.6 K/mm3 (4.5-10.0)
[2021-12-27 08:48] VITALS: PULSE 78
[2021-12-27] MEDS: METOPROLOL SUCCINATE EXT REL 50 MG TABCR PO (08:48)
[2021-12-27] MEDS: PANTOPRAZOLE 40 MG TABLET PO (08:48)
[2021-12-27] MEDS: hydroCHLOROthiazide 12.5 MG CAPSULE PO (08:48)
[2021-12-27] MEDS: SPIRONOLACTONE 50 MG TABLET 100 MG PO (08:48)
[2021-12-27] MEDS: LORATADINE 10 MG TABLET PO (08:48)
[2021-12-27] MEDS: MELOXICAM 7.5 MG TABLET PO (08:48)
--- NOTE | 2021-12-27 13:01 | PM.GYNPNOP ---
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 If culture changes antibiotic preference will make this change accordingly. 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 Since then been on antibiotics and doing well. Drains placed yesterday with minimal drainage to this point. She is tolerating regular food on oral pain medications and overall doing very well. Discussed again the long-range plan with her her . 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 - PN: Obj Data Vital Signs Vital Signs: Vital Signs - 24 hr 12/26/21 14:23 12/26/21 14:30 12/26/21 14:45 Temperature Pulse Rate 72 74 77 Respiratory Rate 16 17 12 Blood Pressure 141/84 H 150/82 H 153/78 H Pulse Oximetry 100 100 100 12/26/21 14:50 12/26/21 14:55 12/26/21 15:00 Temperature Pulse Rate 88 92 89 Respiratory Rate 12 14 14 Blood Pressure 145/82 H 148/83 H 143/83 H Pulse Oximetry 100 99 100 12/26/21 15:05 12/26/21 15:10 12/26/21 15:15 Temperature Pulse Rate 87 86 84 Respiratory Rate 17 17 16 Blood Pressure 149/74 H 145/77 H 152/73 H Pulse Oximetry 100 100 100 12/26/21 15:20 12/26/21 15:25 12/26/21 15:30 Temperature Pulse Rate 88 83 86 Respiratory Rate 17 16 16 Blood Pressure 145/73 H 145/79 H 146/86 H Pulse Oximetry 100 100 100 12/26/21 15:35 12/26/21 15:40 12/26/21 15:45 Temperature Pulse Rate 86 86 88 Respiratory Rate 20 16 15 Blood Pressure 141/90 H 152/85 H 152/85 H Pulse Oximetry 100 100 100 12/26/21 15:50 12/26/21 15:55 12/26/21 16:00 Temperature Pulse Rate 80 86 81 Respiratory Rate 15 14 16 Blood Pressure 156/82 H 141/77 H 126/83 Pulse Oximetry 100 99 100 12/26/21 16:05 12/26/21 16:10 12/26/21 16:15 Temperature Pulse Rate 75 73 81 Respiratory Rate 15 18 19 Blood Pressure 130/74 125/83 128/74 Pulse Oximetry 100 100 100 12/26/21 16:20 12/26/21 16:25 12/26/21 16:30 Temperature Pulse Rate 80 73 74 Respiratory Rate 20 14 17 Blood Pressure 131/76 138/79 141/78 H Pulse Oximetry 100 100 100 12/26/21 16:44 12/26/21 16:45 12/26/21 21:45 Temperature 97.6 F Pulse Rate 74 82 81 Respiratory Rate 17 17 18 Blood Pressure 141/78 H 126/73 120/67 Pulse Oximetry 100 97 98 12/26/21 21:46 12/26/21 23:23 12/27/21 03:23 Temperature 97.6 F 97.6 F 97.2 F L Pulse Rate 81 72 70 Respiratory Rate 18 18 18 Blood Pressure 120/67 118/70 117/75 Pulse Oximetry 98 98 98 12/27/21 05:43 12/27/21 08:48 Temperature 97.2 F L Pulse Rate 73 78 Respiratory Rate 18 Blood Pressure 109/68 Pulse Oximetry 99 Intake/Output Intake/Output: Intake & Output 12/24/21 12/25/21 12/26/21 12/27/21 23:59 23:59 23:59 23:59 Intake Total 50 840 460 Output Total 400 900 Balance 50 440 -440 Meds/Results Medications: Active Medications Generic Name Dose Route Start Last Admin Trade Name Freq PRN Reason Stop Dose Admin Acetaminophen 650 mg 12/25/21 21:27 12/26/21 18:32 Acetaminophen 325 Mg Tablet PO 650 mg Q4H PRN Administration Mild Pain (1-3) or Fever Hydrocodone Bitart/Acetaminophen 1 tab 12/26/21 20:07 12/27/21 06:10 Hydrocodone/Acetaminophen (*Crx) 5-325 Mg Tablet PO 1 tab Q6H PRN Administration Pain Rated 4-6 Desvenlafaxine Succi
[2021-12-27 14:00] VITALS: BP 131/82; PULSE 81; RESP 18; TEMP 36.1; O2SAT 98
[2021-12-27 20:10] VITALS: PULSE 71; RESP 16; O2SAT 100
[2021-12-27] MEDS: DESVENLAFAXINE SUCCINATE 50 MG TAB.ER.24H 100 MG PO (20:40)
[2021-12-27 22:00] VITALS: BP 131/76; PULSE 71; RESP 16; TEMP 36.6; O2SAT 100
[2021-12-28] VITALS (7 sets, daily range): BP systolic 108–120; BP diastolic 64–70; PULSE 69–77; RESP 16–18; TEMP 35.9–36.1; O2SAT 97–99
[2021-12-28 07:17] LABS: Hematocrit 35.6 % (37.0-47.0); Hemoglobin 11.2 g/dL (12.0-15.0); Mean Corpuscular HGB Conc 31.5 g/dl (32-36); Mean Corpuscular Hemoglobin 27.4 pg (26-34); Mean Platelet Volume 10.8 fl (7.4-10.4); Platelet Count Result 328 k/mm3 (150-375); Red Blood Count 4.09 M/mm3 (4.2-5.4); Red Cell Distribution Width 14.8 % (11.5-14.5); White Blood Count 9.9 K/mm3 (4.5-10.0)
[2021-12-28] MEDS: PANTOPRAZOLE 40 MG TABLET PO (09:27)
[2021-12-28] MEDS: METOPROLOL SUCCINATE EXT REL 50 MG TABCR PO (09:27)
[2021-12-28] MEDS: LORATADINE 10 MG TABLET PO (09:27)
[2021-12-28] MEDS: SPIRONOLACTONE 50 MG TABLET 100 MG PO (09:28)
[2021-12-28] MEDS: hydroCHLOROthiazide 12.5 MG CAPSULE PO (09:28)
[2021-12-28] MEDS: MELOXICAM 7.5 MG TABLET PO (09:28)
--- NOTE | 2021-12-28 13:51 | PM.GYNPNOP ---
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 Drains to be pulled later today. 2. Continue IV antibiotics until tomorrow morning. 3. Change to oral antibiotics prior to discharge. Culture results are noted and will tailor antibiotic choice to susceptibilities which should be back later today or tomorrow. 4. She has a follow-up scheduled early next week with Dr. Banks. 5. I have discussed with her parameters with which she would need to call prior to her scheduled appointment she states good understanding and questions have been answered. Postoperative Procedures: Procedures Operation Date: 12/26/21 13:00 Actual Procedure Side Surgeon p Comp Tomography Guide Abscess Cath Place Pradeep Shannon MD Time Spent With Patient Time: Total time spent is greater than 50% in coordination of care (as documented) at patient's floor/unit and/or counseling patient: Time with patient: less than 15 minutes PEDICAB DRIVER- PN:Subj Post-Op Subjective Date/time seen: 12/28/21 13:51 46-year-old female hospital day 3 for pelvic abscess status post hysterectomy. She continues to feel well with no significant symptomatic complaints. PEDICAB DRIVER - PN: Obj Data Vital Signs Vital Signs: Vital Signs - 24 hr 12/27/21 14:00 12/27/21 20:10 12/27/21 22:00 Temperature 97 F L 97.8 F Pulse Rate 81 71 71 Respiratory Rate 18 16 16 Blood Pressure 131/82 131/76 Pulse Oximetry 98 100 100 12/28/21 06:00 12/28/21 08:23 12/28/21 09:27 Temperature 97 F L Pulse Rate 71 73 Respiratory Rate 16 Blood Pressure 108/64 Pulse Oximetry 97 98 Intake/Output Intake/Output: Intake & Output 12/25/21 12/26/21 12/27/21 12/28/21 23:59 23:59 23:59 23:59 Intake Total 50 840 1660 800 Output Total 400 900 Balance 50 440 760 800 Meds/Results Medications: Active Medications Generic Name Dose Route Start Last Admin Trade Name Freq PRN Reason Stop Dose Admin Acetaminophen 650 mg 12/25/21 21:27 12/26/21 18:32 Acetaminophen 325 Mg Tablet PO 650 mg Q4H PRN Administration Mild Pain (1-3) or Fever Hydrocodone Bitart/Acetaminophen 1 tab 12/26/21 20:07 12/27/21 14:41 Hydrocodone/Acetaminophen (*Crx) 5-325 Mg Tablet PO 1 tab Q6H PRN Administration Pain Rated 4-6 Desvenlafaxine Succinate 100 mg 12/26/21 21:00 12/27/21 20:40 Desvenlafaxine Succinate 50 Mg Tab.Er.24h PO 100 mg HS IKE Administration Hydrochlorothiazide 12.5 mg 12/26/21 09:00 12/28/21 09:28 Hydrochlorothiazide 12.5 Mg Capsule PO 12.5 mg DAILY IKE Administration Piperacillin/Tazobactam/Dextrose 3.375 gm in 50 mls @ 100 mls/hr 12/26/21 05:00 12/28/21 12:20 Zosyn 3.375 Gm/D5w 50ml Pm IVPB 100 mls/hr Q6HR IKE Administration Loratadine 10 mg 12/26/21 09:00 12/28/21 09:27 Loratadine 10 Mg Tablet PO 10 mg DAILY IKE Administration Meloxicam 7.5 mg 12/26/21 09:00 12/28/21 09:28 Meloxicam 7.5 Mg Tablet PO 7.5 mg DAILY IKE Administration Metformin HCl 1,000 mg 12/26/21 09:00 12/26/21 09:26 Metformin Hcl Xr 500 Mg Tab.Sr.24h PO 1,000 mg DAILY IKE Administration Metoprolol Succinate 50 mg 12/26/21 09:00 12/28/21 09:27 Metoprolol Succinate Ext Rel 50 Mg Tabcr PO 50 mg DAILY IKE Administration Morphine Sulfate 2 mg 12/26/21 20:07 Morphine Sulfate (*Crx) 2 Mg/Ml Inj IV PUSH Q4H PRN Pain Rated 7-10 Pantoprazole Sodium 40 mg 12/26/21 09:00 12/28/21 09:27 Pantoprazole 40 Mg Tablet PO 40 mg QAM IKE Administration Spironolactone 100 mg 12/26/21 09:00 12/28/21 09:28 Spironolactone 50 Mg Tablet PO 100 mg DAILY IKE Administration Radiology Results: ITS Impressions Abdomen/Pelvis CT 12/25/21 20:44 IMPRESSION: Findings concerning for extensive postoperative abscess fo
[2021-12-28] MEDS: DESVENLAFAXINE SUCCINATE 50 MG TAB.ER.24H 100 MG PO (20:28)
[2021-12-29 06:00] VITALS: BP 102/60; PULSE 97; RESP 18; TEMP 36.7; O2SAT 99
[2021-12-29 07:31] VITALS: O2SAT 100
--- NOTE | 2022-01-01 09:45 | P.DS_ITS ---
DS: Admitting Diagnosis Discharge Date 12/29/21 46-year-old female admitted for week status post hysterectomy CT scan consistent with pelvic abscess. she presented to the emergency room with vaginal spotting/bleeding though she denied fever chills nausea vomiting diarrhea constipation or any urinary tract symptoms. Also denies significant abdominal pain and was not on any type of pain medication. Generally speaking other than the bleeding she was not ill and not feeling poorly. CT scan is in the chart and did reveal findings consistent with abscess therefore was admitted and placed on Zosyn for antibiotic therapy. Her white blood cell count was 12.4 with a normal H&H. On the 1st day after admission she had drains placed in 2 pockets 1 which grew E coli and GBS the other did not grow any bacteria. She continued on IV antibiotic therapy for 72hours and discharged home on oral therapy consistent with Keflex and Bactrim DS. The drains were pulled by myself prior to discharge and were intact and completely removed. After discharge the final culture and sensitivity returned with the Bactrim not sensitive and the Keflex indeterminate therefore patient was called and initiated on Augmentin therapy [id number] b.i.[id number]. she is scheduled to see Dr. Banks on 01/02 for follow-up. Prior to discharge she was also given para meters to call prior to that follow-up if needed. Patient stated good understanding questions have been answered and she was discharged home as above to follow-up on 01/02. Admitting Diagnosis Pelvic abscess DS: Summary Hospital Course Hospital Course: see HPI for details Time Spent with Patient Time attestation: Total time spent providing and/or coordinating discharge se rvices: Discharge Plan Discharge Consulting providers: Meeta Barksdale Discharging Clinician: Malachi Mcbride Patient Disposition: Home, Self-Care Activity: as tolerated Diet: as tolerated Wound Care Instructions: incision open to air Patient Instructions: Antibiotic Form Stand Alone Forms: General Discharge Information Follow-up/Referrals: Mary Banks MD [Physician] - 1 Week Discharge Medications: New cephalexin 500 mg capsule 500 mg PO Q8H Qty: 30 RF: 0 sulfamethoxazole-trimethoprim [Bactrim DS] 800-160 mg tablet 1 tablet PO Q12H Qty: 20 RF: 0 Continued hydrochlorothiazide 12.5 mg Tablet 12.5 mg PO DAILY RF: 0 metoprolol succinate 50 mg Tablet Extended Release 24 Hr 50 mg PO DAILY RF: 0 spironolactone 100 mg Tablet 100 mg PO DAILY RF: 0 pantoprazole 40 mg Tablet,Delayed Release (Dr/Ec) 40 mg PO QAM RF: 0 metformin 1,000 mg Tablet Extended Release 24hr 1,000 mg PO DAILY RF: 0 desvenlafaxine succinate [Pristiq] 100 mg Tablet Extended Release 24 Hr 100 mg PO HS RF: 0 meloxicam [Mobic] 7.5 mg Tablet 7.5 mg PO DAILY RF: 0 Hold Instructions: Resume on 12/05/21. loratadine [Claritin] 10 mg Tablet 10 mg PO DAILY RF: 0 Date of admission: 12/25/21 21:27 Primary Care Provider: FrancoHafsa Admitting Provider: Malachi Mcbride Attending physician on admission: Malachi Mcbride Condition: Stable
== END 2021-12-29 08:34 | disposition home or self-care (01) | DRG 863 ==
LOC: ANHED 21:26 → ANH3MEDSUR 22:50
PROVIDERS: Radiology Diagnostic Radiology; Admitting Provider Obstetrics & Gynecology; Emergency Provider Emergency Medicine; PCP Family Medicine; Visit Provider Obstetrics & Gynecology
PROC: (CPT 75989; principal; 2021-12-26 13:00)
DX: T81.43XA Infection following a procedure, organ and space surgical site, initial encounter (principal); N73.0 Acute parametritis and pelvic cellulitis; B96.20 Unspecified Escherichia coli [E. coli] as the cause of diseases classified elsewhere; B95.1 Streptococcus, group B, as the cause of diseases classified elsewhere; E28.2 Polycystic ovarian syndrome; K21.9 Gastro-esophageal reflux disease without esophagitis; F41.9 Anxiety disorder, unspecified; I10 Essential (primary) hypertension; J45.909 Unspecified asthma, uncomplicated; Z98.1 Arthrodesis status
CPT/HCPCS: 36415; 74177; 75989; 80053; 82948; 85025; 85027; 85610; 85730; 86850; 86900; 86901; 87070; 87075; 87077; 87147; 87181; 87186; 87205; 99285; A9270; C1729; C1769; J2250; J2543; J3010; J7040; J7120; Q9967